=== PATIENT | male | born 1955 | race Caucasian/White ===

== ENCOUNTER 2019-04-07 07:32 | Inpatient (IN) ==
--- NOTE | 2019-03-30 09:16 | PAT Medication Instructions ---
Medication Instructions Date of Service March 30, 2019 Home Medications hydrochlorothiazide 12.5 mg PO QAM ibuprofen 400 mg PO BID ASK your surgeon for instructions ibuprofen 400 mg PO BID DO NOT take the morning of surgery hydrochlorothiazide 12.5 mg PO QAM Other Notes If you have any questions please call us at [phone] or [phone] or [phone] or [phone]
--- NOTE | 2019-03-31 10:31 | Anesthesiology Consultation ---
Date of Service March 31, 2019 Assessment & Plan (1) Encounter for pre-operative examination: - Awaiting surgeon-ordered PCP clearance scheduled 04/02 (MIL Akhtar). - Abnormal preop EKG: consider inferior ischemia. Arranging for preop cardiology evaluation. Chart Review Chart Review: Patient seen in Pre Admission Testing Teaching & Discussion Pre-Anesthesia Teaching/Discussion Notes: Instructed NPO after midnight before surgery,except medications with 15 cc of water. Medication instructions provided according to the PAT guidelines. History Surgery Operation Date: 04/07/19 09:25 Proposed Procedures p Right Anterior Total Hip Arthroplasty - Rei Thompson DO Height/Weight Height: 6 ft 1 in Weight: 92.4 kg Allergies Allergy/AdvReac Type Severity Reaction Status Date / Time No Known Allergies Allergy Verified 03/23/19 15:07 Medications Home Medications Medication Instructions Recorded Confirmed Last Taken hydrochlorothiazide 12.5 mg PO QAM 03/23/19 03/23/19 Unknown ibuprofen 400 mg PO BID 03/23/19 03/23/19 Unknown Past Medical History Medical History Chronic hip pain RIGHT Hypertension Exercise / Class Metabolic Activity II 4-5 Yardwork/Stairs/Walk up hill Past Family History Family History Sister FHx: stomach cancer Past Surgical History Surgical History History of anterior cruciate ligament surgery LEFT History of total left hip replacement Hx of colonoscopy Hx of hernia repair Past Anesthesia History No Hx of Anesthesia Complications History of PONV No Hx of PONV and Hx of Motion Sickness Social History Smoking Status: Never smoker Do You Dip or Chew Tobacco: No Hx Alcohol Use: Yes Alcohol type: wine alcohol intake frequency: a few times a week Hx Substance Use: No Review of Systems Patient denies chest pain, shortness of breath, dyspnea on exertion, cough, wheezing, palpitations. Physical Exam Vital Signs VITALS BP 158/94 P 72 TEMP 98.8 SP02 99%RA RESP 18 PHYSICAL Full neck and c-spine range of motion. Full TMJ range of motion. TMD 3.5 finger breaths Mallampati Score 1 Dentition: missing molars Lungs: clear throughout to auscultation Cardiac: regular rate and rhythm, no murmurs noted Spine: normal Carotid arteries: negative bruit Extremities: no edema Testing Laboratory Results 03/31/19 10:42 03/31/19 10:42 PT 11.2 Seconds (9.0-12.0) 03/31/19 10:42 INR 1.1 (0.9-1.1) 03/31/19 10:42 APTT 26.5 Seconds (21.0-31.0) 03/31/19 10:42 Hemoglobin A1c 5.9 % (4.5-5.6) H 03/31/19 10:42 Urine Color Yellow 03/31/19 10:42 Urine Appearance Clear (Clear) 03/31/19 10:42 Urine pH 5.5 (4.5-7.5) 03/31/19 10:42 Ur Specific [place] 1.017 (1.000-1.030) 03/31/19 10:42 Urine Protein Negative (Negative) 03/31/19 10:42 Urine Glucose (UA) Negative (Negative) 03/31/19 10:42 Urine Ketones Negative (Negative) 03/31/19 10:42 Urine Nitrite Negative (Negative) 03/31/19 10:42 Ur Leukocyte Esterase Negative (Negative) 03/31/19 10:42 Blood Type A Positive 03/31/19 10:42 Antibody Screen NEGATIVE 03/31/19 10:42 Electrocardiogram Date: 03/31/19 NSR at 76bpm. Rightward axis. TWA, consider inferior ischemia. NS STA. Chest X-Ray Date: 03/31/19 Findings: + NAD
[2019-03-31 11:15] LABS: Basophils # (auto) 0.02 K/uL (0-0.2); Basophils % (auto) 0.4 %; Eosinophils # (auto) 0.06 K/uL (0-0.5); Eosinophils % (auto) 1.2 %; Hematocrit (blood only) 42.5 % (42-52); Hemoglobin 14.5 g/dL (14.0-18.0); Immature Granulocytes # (auto) 0.01 K/uL (0.00-0.02); Immature Granulocytes % (auto) 0.2 %; Lymphocytes # (auto) 1.35 K/uL (1.2-3.4); Lymphocytes % (auto) 26.4 %; Mean Corpuscular Hemoglobin 32.4 pg (25-34); Mean Corpuscular Hgb Conc 34.1 g/dL (32-36); Mean Corpuscular Volume 95.1 fL (80-100); Mean Platelet Volume 9.5 fL (7.4-10.4); Monocytes # (auto) 0.49 K/uL (0.11-0.59); Monocytes % (auto) 9.6 %; Neutrophils # (auto) 3.19 K/uL (1.4-6.5); Neutrophils % (auto) 62.2 %; Platelet Count 290 K/uL (130-400); RDW Coefficient of Variation 12.9 % (11.5-14.5); RDW Standard Deviation 44.6 fL (36.4-46.3); Red Blood Count 4.47 M/uL (4.7-6.1); White Blood Count 5.12 K/uL (4.8-10.8)
[2019-03-31 11:18] LABS: Appearance Urine Clear (Clear); Bilirubin Urine Negative (Negative); Blood Urine Negative (Negative); Color Urine Yellow; Glucose Urine UA Negative (Negative); Ketones Urine Negative (Negative); Leukocyte Esterase Urine Negative (Negative); Nitrite Urine Negative (Negative); Protein Urine Negative (Negative); Specific Gravity Urine 1.017 (1.000-1.030); Urobilinogen Urine Negative (Negative); pH Urine 5.5 (4.5-7.5)
--- NOTE | 2019-03-31 11:20 | XRay Report ---
XR chest Pre-admission PA/Lat CLINICAL HISTORY: pat preoperative evaluation COMPARISON STUDY: No previous studies for comparison. FINDINGS: The bones soft tissues and hemidiaphragms are normal. The cardiomediastinal silhouette is n ormal. The lungs are clear. The pulmonary vasculature is normal. IMPRESSION: Negative chest. ACT 112: Negative or not required by law. The above report was generated using voice recognition software. It may contain grammatical, syntax or spelling errors. Electronically signed by: Richi Stewart M.D. 03/31/2019 11:19 AM
[2019-03-31 11:28] LABS: INR 1.1 (0.9-1.1); Partial Thromboplastin Time 26.5 Seconds (21.0-31.0); Prothrombin Time 11.2 Seconds (9.0-12.0)
[2019-03-31 11:38] LABS: Estimated Average Glucose 123 mg/dl; Hemoglobin A1C 5.9 % (4.5-5.6)
[2019-03-31 12:26] LABS: Albumin Level 3.7 gm/dl (3.4-5.0); BUN Creatinine Ratio 12.4 (10-20); Calcium 9.3 mg/dl (8.5-10.1); Creatinine Clr Calc Pharmacy 84.3 ml/min; Est GFR (African American) 91.8; Est GFR (Non-African American) 79.2; Potassium 3.6 mmol/L (3.5-5.1)
--- NOTE | 2019-03-31 21:54 | Electrocardiogram Report ---
Test Reason : Blood Pressure : / mmHG Vent. Rate : 076 BPM Atrial Rate : 076 BPM P-R Int : 166 ms QRS Dur : 102 ms QT Int : 398 ms P-R-T Axes : 049 100 -26 degrees QTc Int : 447 ms Normal sinus rhythm Rightward axis T wave abnormality, consider inferior ischemia Nonspecific ST abnormality Abnormal ECG When compared with ECG of 13-MAY-2015 13:24, T wave inversion now evident in Inferior leads QT has lengthened Confirmed by Spenser Warren ([id number]) on 03/31/2019 9:54:22 PM Referred By: Rei Thompson Confirmed By:Spneser Warren
--- NOTE | 2019-04-06 22:38 | History & Physical Report ---
Date of Service April 06, 2019 Assessment & Plan (1) Degenerative joint disease of right hip: I have indicated the patient for right anterior total hip replacement. The risks, benefits and complications of surgery were explained to the patient which include but not limited to infection, acute blood loss, DVT/PE, injury to nerves, vessels, bone, soft tissue, arthrofibrosis, chronic pain, failure of the prosthesis, hip dislocation, leg length discrepancy, need for additional surgery, cardiac and pulmonary events and . The patient wished to proceed with surgery and informed consent was obtained at this time. We will plan for ASA BID post-operatively for DVT prophylaxis. Upon discharge the patient will be discharged home with home health services. Appropriate clearances by PCP were obtained. History of Present Illness Chief Complaint: Right hip pain/djd Primary Care Provider: Bee Newsome PA-C The patient is a 63 year old male who presents with complaints of severe right hip pain and DJD. The patient has failed outpatient conservative treatments to this point which included NSAIDS, home exercise/walking program, patient declined IA corticosteroid injection. The patient's pain and limited function have progressed to the point where they severely hinder their activities of daily living and they no longer tolerate exercise programs. They are requesting to proceed with total hip replacement surgery. Allergies Allergy/AdvReac Type Severity Reaction Status Date / Time No Known Allergies Allergy Verified 04/07/19 08:02 Home Medications Home Medications Medication Instructions Recorded Confirmed Type ibuprofen 400 mg PO BID 03/23/19 04/07/19 History atorvastatin 20 mg tablet 20 mg PO DAILY #90 tab 04/03/19 04/07/19 Rx lisinopril-hydrochlorothiazide 1 tab PO DAILY 04/03/19 04/07/19 History multivit with [id number] 1 cap PO DAILY 04/07/19 04/07/19 History [Men's Daily] Past Med/Surg History Medical History Aortic stenosis Moderate on echo 03/2019 Bicuspid aortic valve Chronic hip pain RIGHT Hypertension LVH (left ventricular hypertrophy) Surgical History History of anterior cruciate ligament surgery LEFT History of total left hip replacement Hx of colonoscopy Hx of hernia repair Family History Sister FHx: stomach cancer Social History Preferred Language: Greek Communication Ability: Effective Beliefs That Will Affect Care: None Current Living Situation: Spouse Feels Safe at Home: Yes Safety Concerns: Feels Safe At This Time Smoking Status: Never smoker Do You Dip or Chew Tobacco: No ; Second Hand Exposure: No ; Hx Alcohol Use: Yes Alcohol type: wine Hx Substance Use: No Review of Systems Review of Systems: All systems reviewed & are unremarkable except as noted in HPI & below Constitutional: as per Subjective / HPI Physical Exam 2 Physical Exam: RLE NVSI +EHL/FHL/TA/GS SILT grossly, +2 DP pulse, compartments soft NT, painful ROM of the hip, antalgic gait. Constitutional: WD/WN, vitals as above Eyes: PERRL, conjunctivae normal, anicteric sclerae ENMT: external ear and nose normal, oropharynx normal Neck: trachea midline, no thyromegaly Respiratory: normal respiratory effort, lungs clear to auscultation Cardiovascular: RRR, no murmur, no edema Gastrointestinal (Abdomen): normal bowel sounds, soft, nontender, no hepatosplenomegaly Musculoskeletal: no cyanosis or clubbing, extremities motor strength 5/5 Skin: no rashes, warm and dry Neurologic: patellar DTR's 2+ bilat, sensation intact Psychiatric: A+Ox3, euthymic affect Lymphatic: no cervical or axillary lymphadenopathy Results & Data Diagnostic Findings Multiple views of the hip demonstrates severe DJD with complete loss of the joint space. +osteophytes, +sclerosis, +subchondral cysts.
[~2019-04-07 07:32] MED LIST: ACETAMINOPHEN 500 MG TAB PO SCH; BUPIVACAINE 0.5 % 5 MG/1 ML PF 10ML VIAL ONE; CEFAZOLIN 2000MG 2,000 MG/15 ML SYR IV SCH; CeleBREX 200 MG CAP PO SCH; FAMOTIDINE 20 MG TAB PO SCH; GABAPENTIN 600 MG DOSE PO SCH; LR 500ML BOLUS, THEN 15ML/HR IV SCH; ROPIVACAINE 0.5% HCL/PF 150 MG, BUPIVACAINE 0.5% MPF 30 ML, EPINEPHrine 30MG/30ML (OR U... INSTIL SCH; TRANEXAMIC ACID 1,000 MG **IV Intra-op IV SCH; TRANEXAMIC ACID 1,000 MG **IV Pre-op IV SCH; dexAMETHasone 4 MG TAB PO SCH
[2019-04-07] MEDS ORDERED: LIDOCAINE HCL 2% 2 ML VIAL/AMP(20MG/ML) INFIL ONE (08:09)
[2019-04-07] MEDS ORDERED: ONDANSETRON INJ 2 MG/ML 2 ML VIAL ONE (08:09)
[2019-04-07] MEDS ORDERED: ROCURONIUM BROMIDE 10 MG/ML 5 ML VIAL ONE (08:09)
[2019-04-07] MEDS ORDERED: fentaNYL citrate 100 MCG/2 ML VIAL ONE (08:09)
[2019-04-07] MEDS ORDERED: PROPOFOL IV EMULSION 10 MG/ML 20 ML VIAL IV ONE (08:09)
[2019-04-07] MEDS ORDERED: MIDAZOLAM HCL 1 MG/ML 2ML VIAL ONE (08:10)
[2019-04-07] MEDS ORDERED: ONDANSETRON INJ 2 MG/ML 2 ML VIAL IV PRN ×2 (09:16→13:39)
[2019-04-07] MEDS ORDERED: ePHEDrine sulfate 50 MG/ML AMP IV PRN (09:16)
[2019-04-07] MEDS ORDERED: ATROPINE SULFATE 0.1 MG/ML 10ML SYR IV PRN (09:16)
[2019-04-07] MEDS ORDERED: BACITRACIN INJ 50,000 UNIT VIAL ONE (09:18)
[2019-04-07] MEDS ORDERED: ORTHO JOINT ANESTHETIC ONE (09:18)
--- NOTE | 2019-04-07 09:23 | History & Physical Bridge Note ---
Date of Service April 07, 2019 History & Physical Bridge Note I have examined the patient, reviewed the History & Physical and in the interval since the performance of the History & Physical I have noted the following changes of clinical significance: no changes noted
[2019-04-07] MEDS ORDERED: HYDROmorphone INJ 2 MG/ML SYR/VIAL ONE (11:23)
--- NOTE | 2019-04-07 11:36 | Post Operative Brief Note ---
Immediate Post Op Note v1 Date of Surgery April 07, 2019 Pre & Post Diagnosis Operation Date: 04/07/19 09:35 Pre-Op Diagnosis: Degenerative joint disease of right hip Post-Op Diagnosis: Degenerative joint disease of right hip I identified the patient and participated in the time-out.: Yes Procedure Operation Date: 04/07/19 09:35 Actual Procedures p Right Anterior Total Hip Arthroplasty(Right) - Rei Thompson DO Surgeon Rei Thompson DO Pleasure Craft Sailor Brian Robert Estimated Blood Loss 135 Findings Consistent with Post-Op Diagnosis Fluids 800 cc LR Specimens femoral head Anesthesia Type General Complications none Disposition Disposition: Recovery Room Overlapping Procedure I was present for: the critical portions of procedure. I was immediately available: during the entire case. Back up surgeon: was not required during procedure.
--- NOTE | 2019-04-07 11:40 | Operative Report ---
Post Operative Report Pre & Post Diagnosis Operation Date: 04/07/19 09:35 Pre-Op Diagnosis: Degenerative joint disease of right hip Post-Op Diagnosis: Degenerative joint disease of right hip I identified the patient and participated in the time-out.: Yes Procedure Operation Date: 04/07/19 09:35 Actual Procedures p Right Anterior Total Hip Arthroplasty(Right) - Rei Thompson DO Surgeon Rei Thompson DO Pet Sitting Brian Robert Estimated Blood Loss 135 Findings Consistent with Post-Op Diagnosis Fluids 800 cc LR Specimens Femoral head Drains None Anesthesia Type General Complications none Disposition Disposition: Recovery Room Indications The patient is a 63-year-old male who presents with severe progressive right hip DJD who has failed outpatient conservative treatments. I indicated the patient for a anterior total hip replacement and the risks and benefits were explained in detail which include but not limited to infection, bleeding, blood clot, damage to surrounding bone, nerves, vessels, soft tissue, hip dislocation, failure of the prosthesis, leg length discrepancy, need for additional surgery and . The patient agreed to proceed with replacement of the hip and informed consent was obtained. Appropriate clearances were obtained. Description of Procedure COMPONENTS USED: [employer] hip system: Acetabulum size 58, femur size 8 high offset, femoral head 36+0, liner 5836, acetabular screw 25 mm times. DESCRIPTION OF PROCEDURE: Following satisfactory general anesthesia, the patient was placed supine on the OR table. The left leg was placed in the well leg [place] and the right leg in the traction device. The right leg was prepared with ChloraPrep and draped sterilely. A surgical timeout was performed, patient identified and site heather verified. Appropriate antibiotics were given. A standard anterior approach in the interval between the sartorius and tensor muscles was performed. Dissection was carried down through subcutaneous tissues. Electrocautery was utilized for hemostasis. Circumflex femoral vessels were identified, tied and ligated. The anterior capsular fat pad was removed and the capsulotomy was performed revealing the arthritic femoral neck and head. A femoral neck cut was made with reciprocating saw and the bone fragments removed. The acetabular self-retraining retractor was placed. Acetabular reaming was completed under fluoroscopic guidance, a 58 shell was impacted into an anatomic position and secured with a dome screw. Local anesthetic was placed and following irrigation, the polyethylene liner was placed. The femur was placed into position of external rotation, extension and adduction. Femoral canal was prepared up to the size 8 high offset. Trial reduction with a plus neck length head showed good soft tissue tension, leg lengths restored, and good fit and fill of the proximal canal using fluoroscopic landmarks. The hip was dislocated. The trial component was removed. The final implant was placed. The hip was irrigated with sterile saline solution and reduced. A Betadine soak was performed. After 3 minutes, the hip was once more irrigated with copious sterile saline solution with bacitracin. Deya-incisional soft tissue was injected utilizing [place] [employer] which includes a combination of Ropivicaine 0.5% 150mg, Bupivicaine 0.5%/Epinephrine 1:200,000 30ml, Toradol 30mg, Dexamethasone 4mg, Ketamine 10mg, Clonidine 100mcg and NSS 30ml solution. The capsule was then closed with 1-0 Vicryl interrupted figure of eight sutures. The fascia was closed with a running suture of #1 Vicryl, the subcutaneous tissues with 2-0 Vicryl and the skin with a running subcuticular stitch of 3-0 V-Loc. Dermabond prineo and a dry dressing were applied. The patient tolerated the procedure well and was transported to PACU in stable condition. Due to the complex nature of the procedure, the entire surgery was performed with the operational assistance of Brian robert PA-C. The culinary assistant, under direct supervision, was involved in the actual performance of all aspects of the surgical procedure including patient positioning, hemostasis, tissue retraction, instrument management and wound closure. I attest to the content of the Intraoperative Record and any orders documented therein. Any exceptions are noted below.
[2019-04-07] MEDS ORDERED: NEOSTIGMINE METHYLSULFATE 5 MG/5 ML SYR ONE (11:48)
[2019-04-07] MEDS ORDERED: PHENYLEPHRINE HCL 10 MG/ML VIAL ONE (11:48)
[2019-04-07] MEDS ORDERED: GLYCOPYRROLATE 0.2 MG/ML VIAL ONE (11:48)
[2019-04-07] MEDS: fentaNYL citrate 100 MCG/2 ML VIAL IV PRN ×2 (12:07→12:17)
--- NOTE | 2019-04-07 12:19 | Fluoroscopy Report ---
FL hip RT 1V CLINICAL HISTORY: RT ANTERIOR HIP COMPARISON STUDY: None. FLUOROSCOPY TIME: 58 seconds. FINDINGS: 2 fluoroscopic spot images of the right hip demonstrate a right total arthroplasty. There i s evidence for prior left total hip arthroplasty. The hardware appears intact. No fracture or disloca tion. IMPRESSION: Fluoroscopy provided for right total arthroplasty. No evidence for hardware complications . ACT 112: Negative or not required by law. Electronically signed by: Hector Fulton M.D. 04/07/2019 12:18 PM
[2019-04-07] MEDS: HYDROmorphone INJ 2 MG/ML SYR/VIAL IV PRN ×3 (12:29→12:51)
--- NOTE | 2019-04-07 12:57 | XRay Report ---
XR hip 1V RT w pelvis CLINICAL HISTORY: IN PACU - A/P PELVIS and LATERAL HIP COMPARISON: 05/23/2015 DISCUSSION: Pre-existing total left arthroplasty in good position. Interval placement of a total right hip arthroplasty. Position is good. Could contact between prosthe tic and underlying bone. Expected postoperative soft tissue change IMPRESSION: Anatomic alignment post total right hip arthroplasty. ACT 112: Negative or not required by law. The above report was generated using voice recognition software. It may contain grammatical, syntax or spelling errors. Electronically signed by: Richi Stewart M.D. 04/07/2019 12:56 PM
--- NOTE | 2019-04-07 13:36 | Anesthesiology Progress Note ---
Date of Service April 07, 2019 Anesthesia Post Procedure Vital Signs Vital Signs: Temp Pulse Resp BP BP Pulse Ox 04/07/19 13:15 95 H 21 122/69 99 04/07/19 13:05 37.2 C 85 12 123/83 98 04/07/19 12:55 79 14 139/85 99 04/07/19 12:40 82 12 137/77 99 04/07/19 12:30 78 16 148/92 H 99 04/07/19 12:20 75 12 104/76 100 04/07/19 12:10 63 13 134/86 100 04/07/19 12:02 36.4 C L 69 21 127/76 100 04/07/19 08:05 37.1 C 79 20 139/94 97 Pain Intensity Right Hip: Pain Intensity: 4 Transfer of Care Handoff Completed per policy Notes Mental Status: alert / awake / arousable and participated in evaluation Patient Amnestic to Procedure: Yes Nausea / Vomiting: adequately controlled Pain: adequately controlled Airway Patency, RR, SpO2: stable & adequate BP & HR: stable & adequate Hydration State: stable & adequate Anesthetic Complications: no major complications apparent and Pt Satisfied with anesthetic care
[2019-04-07] MEDS ORDERED: MAGNESIUM HYDROXIDE SUSP 30 ML UDC PO PRN (13:39)
[2019-04-07] MEDS ORDERED: NALOXONE HCL 0.4 MG/1 ML VIAL/CARP IV PRN (13:39)
[2019-04-07] MEDS ORDERED: METOCLOPRAMIDE HCL INJ 5 MG/ML 2 ML VIAL IV PRN (13:39)
[2019-04-07] MEDS ORDERED: bisacodyL 10 MG SUPP PR PRN (13:39)
[2019-04-07] MEDS ORDERED: INFLUENZA VIRUS QUAD VACCINE 0.5 ML SYR IM ONE (13:59)
[2019-04-07] MEDS ORDERED: INFLUENZA ADMINISTRATION CHARGE ONE (13:59)
[2019-04-07] MEDS ORDERED: ACETAMINOPHEN 500 MG TAB PO ONE (14:15)
[2019-04-07] MEDS: SODIUM CHLORIDE 0.9% 1000ML 1,000 ML IV SCH (14:42)
--- NOTE | 2019-04-07 14:51 | Orthopedic Progress Note ---
Date of Service April 07, 2019 Assessment & Plan (1) Degenerative joint disease of right hip: s/p Right anterior ANGELIQUE -ancef x 24 -DVT ppx: SCDs, TEDs, ASA BID -WBAT RLE -PT/OT -PO XR demonstrates well aligned well fixed prothesis without fracture/dislocation -am labs -DC planning Admission and Anticipated Discharge Date Admission Date: April 07, 2019 Subjective Post Operative Progress Note Patient seen in PACU, comfortable, denies complaints, pain well controlled, no acute issues. Review of Systems Review of Systems: All systems reviewed & are unremarkable except as noted in HPI & below Constitutional: as per Subjective / HPI Physical Exam Physical Exam: RLE NVSI +EHL/FHL/TA/GS SILT grossly, +2 DP pulse, compartments soft NT, dressing cdi. Constitutional: WD/WN, vitals as above Results & Data ([facility]) Vital Signs (Past 12 Hours) Vital Signs Temp Pulse Pulse Resp BP BP Pulse Ox 04/07/19 14:31 88 16 136/92 99 04/07/19 14:00 92 H 16 147/100 H 99 04/07/19 13:30 37.1 C 81 16 118/76 96 04/07/19 13:15 95 H 21 122/69 99 04/07/19 13:05 37.2 C 85 12 123/83 98 04/07/19 12:55 79 14 139/85 99 04/07/19 12:40 82 12 137/77 99 04/07/19 12:30 78 16 148/92 H 99 04/07/19 12:20 75 12 104/76 100 04/07/19 12:10 63 13 134/86 100 04/07/19 12:02 36.4 C L 69 21 127/76 100 04/07/19 08:05 37.1 C 79 20 139/94 97
[2019-04-07] MEDS: CEFAZOLIN 2000MG 2,000 MG/15 ML SYR IV SCH ×2 (19:07→23:54)
[2019-04-07] MEDS: KETOROLAC TROMETHAMINE 15 MG/ML VIAL IV SCH ×2 (19:07→23:55)
[2019-04-07] MEDS ORDERED: SENNA 8.6 MG TAB PO SCH (21:00)
[2019-04-07] MEDS: DOCUSATE SODIUM 100 MG CAP PO SCH (21:24)
[2019-04-07] MEDS: ACETAMINOPHEN 500 MG TAB PO SCH (21:25)
[2019-04-07] MEDS: OXYCODONE HCL IR 5 MG TAB (IMMEDIATE RELEASE) PO PRN (23:33)
[2019-04-08] MEDS: SODIUM CHLORIDE 0.9% 1000ML 1,000 ML IV SCH (00:08)
[2019-04-08] MEDS: HYDROmorphone INJ 0.5 MG/0.5 ML SYR IV PRN ×2 (01:35→07:41)
[2019-04-08] MEDS: OXYCODONE HCL IR 5 MG TAB (IMMEDIATE RELEASE) PO PRN ×2 (05:27→10:07)
[2019-04-08] MEDS: ACETAMINOPHEN 500 MG TAB PO SCH (05:27)
[2019-04-08] MEDS: KETOROLAC TROMETHAMINE 15 MG/ML VIAL IV SCH ×2 (05:28→11:44)
[2019-04-08 06:47] LABS: Basophils # (auto) 0.01 K/uL (0-0.2); Basophils % (auto) 0.1 %; Eosinophils # (auto) 0.01 K/uL (0-0.5); Eosinophils % (auto) 0.1 %; Hematocrit (blood only) 35.7 % (42-52); Hemoglobin 12.3 g/dL (14.0-18.0); Immature Granulocytes # (auto) 0.02 K/uL (0.00-0.02); Immature Granulocytes % (auto) 0.2 %; Lymphocytes # (auto) 1.15 K/uL (1.2-3.4); Lymphocytes % (auto) 10.5 %; Mean Corpuscular Hemoglobin 32.5 pg (25-34); Mean Corpuscular Hgb Conc 34.5 g/dL (32-36); Mean Corpuscular Volume 94.4 fL (80-100); Mean Platelet Volume 9.2 fL (7.4-10.4); Monocytes # (auto) 1.14 K/uL (0.11-0.59); Monocytes % (auto) 10.4 %; Neutrophils # (auto) 8.61 K/uL (1.4-6.5); Neutrophils % (auto) 78.7 %; Platelet Count 236 K/uL (130-400); RDW Coefficient of Variation 12.7 % (11.5-14.5); RDW Standard Deviation 43.6 fL (36.4-46.3); Red Blood Count 3.78 M/uL (4.7-6.1); White Blood Count 10.94 K/uL (4.8-10.8)
[2019-04-08 07:21] LABS: BUN Creatinine Ratio 13.4 (10-20); Calcium 8.9 mg/dl (8.5-10.1); Creatinine Clr Calc Pharmacy 87.9 ml/min; Est GFR (African American) 96.4; Est GFR (Non-African American) 83.2; Potassium 4.2 mmol/L (3.5-5.1)
--- NOTE | 2019-04-08 08:05 | Anesthesiology Progress Note ---
Date of Service April 08, 2019 Anesthesia Post Procedure Vital Signs Vital Signs: Temp Pulse Pulse Resp BP BP Pulse Ox 04/08/19 03:10 36.5 C 53 L 16 129/79 97 04/07/19 23:17 37.0 C 64 16 116/79 96 04/07/19 19:32 36.9 C 86 16 135/89 98 04/07/19 16:31 36.9 C 78 17 128/84 95 04/07/19 15:59 16 100 04/07/19 15:25 37.0 C 82 16 118/77 100 04/07/19 14:31 88 16 136/92 99 04/07/19 14:00 92 H 16 147/100 H 99 04/07/19 13:30 37.1 C 81 16 118/76 96 04/07/19 13:15 95 H 21 122/69 99 04/07/19 13:05 37.2 C 85 12 123/83 98 04/07/19 12:55 79 14 139/85 99 04/07/19 12:40 82 12 137/77 99 04/07/19 12:30 78 16 148/92 H 99 04/07/19 12:20 75 12 104/76 100 04/07/19 12:10 63 13 134/86 100 04/07/19 12:02 36.4 C L 69 21 127/76 100 04/07/19 08:05 37.1 C 79 20 139/94 97 Pain Intensity Right Hip: Pain Intensity: 7 Notes Mental Status: alert / awake / arousable and participated in evaluation Patient Amnestic to Procedure: Yes Nausea / Vomiting: adequately controlled Pain: adequately controlled Airway Patency, RR, SpO2: stable & adequate BP & HR: stable & adequate Hydration State: stable & adequate Anesthetic Complications: no major complications apparent and Pt Satisfied with anesthetic care
--- NOTE | 2019-04-08 08:17 | Orthopedic Progress Note ---
Date of Service April 08, 2019 Assessment & Plan (1) Degenerative joint disease of right hip: s/p Right anterior ANGELIQUE POD#1 -ancef x 24 -DVT ppx: SCDs, TEDs, ASA BID -WBAT RLE -PT/OT -PO XR demonstrates well aligned well fixed prothesis without fracture/dislocation -am labs - hgb 12.3, as above -continue with current pain control protocol -DC planning - home with Admission and Anticipated Discharge Date Admission Date: April 07, 2019 Subjective Post Operative Progress Note Patient seen sitting up in bed, comfortable, denies complaints, c/o pain over night however, pain well controlled now, no acute issues. Review of Systems Review of Systems: All systems reviewed & are unremarkable except as noted in HPI & below Constitutional: as per Subjective / HPI Physical Exam Physical Exam: RLE NVSI +EHL/FHL/TA/GS SILT grossly, +2 DP pulse, compartments soft NT, dressing cdi. Constitutional: WD/WN, vitals as above Results & Data ([facility]) Vital Signs (Past 12 Hours) Vital Signs Temp Pulse Resp BP Pulse Ox 04/08/19 08:03 36.6 C 60 16 127/82 97 04/08/19 03:10 36.5 C 53 L 16 129/79 97 04/07/19 23:17 37.0 C 64 16 116/79 96 Laboratory Results 04/08/19 04/08/19 Range/Units 06:34 06:34 WBC 10.94 H (4.8-10.8) K/uL RBC 3.78 L (4.7-6.1) M/uL Hgb 12.3 L (14.0-18.0) g/dL Hct 35.7 L (42-52) % MCV 94.4 (80-100) fL MCH 32.5 (25-34) pg MCHC 34.5 (32-36) g/dL RDW Std Deviation 43.6 (36.4-46.3) fL RDW Coeff of Ion 12.7 (11.5-14.5) % Plt Count 236 (130-400) K/uL MPV 9.2 (7.4-10.4) fL Immature Gran % (Auto) 0.2 % Neut % (Auto) 78.7 % Lymph % (Auto) 10.5 % [place] % (Auto) 10.4 % Eos % (Auto) 0.1 % Baso % (Auto) 0.1 % Immature Gran # (Auto) 0.02 (0.00-0.02) K/uL Neut # (Auto) 8.61 H (1.4-6.5) K/uL Lymph # (Auto) 1.15 L (1.2-3.4) K/uL [place] # (Auto) 1.14 H (0.11-0.59) K/uL Eos # (Auto) 0.01 (0-0.5) K/uL Baso # (Auto) 0.01 (0-0.2) K/uL Sodium 135 L (136-145) mmol/L Potassium 4.2 (3.5-5.1) mmol/L Chloride 102 (98-107) mmol/L Carbon Dioxide 29 (21-32) mmol/L Anion Gap 4.0 (3-11) BUN 13 (7-18) mg/dl Creatinine 0.96 (0.6-1.4) mg/dl Est Cr Clr Drug Dosing 87.9 ml/min Est GFR ( Amer) 96.4 Est GFR (Non-Af Amer) 83.2 BUN/Creatinine Ratio 13.4 (10-20) Glucose 115 H (70-99) mg/dl Calcium 8.9 (8.5-10.1) mg/dl
[2019-04-08] MEDS: DOCUSATE SODIUM 100 MG CAP PO SCH (08:45)
[2019-04-08] MEDS ORDERED: ASPIRIN 325 MG ECTAB PO SCH (09:00)
[2019-04-08] MEDS ORDERED: lisinopriL 10 MG TAB PO SCH (09:00)
[2019-04-08] MEDS ORDERED: MULTIVITAMIN TAB PO SCH (09:00)
[2019-04-08] MEDS ORDERED: ATORVASTATIN 20 MG TAB PO SCH (09:00)
[2019-04-08] MEDS ORDERED: hydroCHLOROthiazide 25 MG TAB PO SCH (09:00)
--- NOTE | 2019-04-08 18:38 | Discharge Summary ---
Date of Service April 08, 2019 Admission HPI Per Admitting Provider The patient is a 63 year old male who presents with complaints of severe right hip pain and DJD. The patient has failed outpatient conservative treatments to this point which included NSAIDS, home exercise/walking program, patient declined IA corticosteroid injection. The patient's pain and limited function have progressed to the point where they severely hinder their activities of daily living and they no longer tolerate exercise programs. They are requesting to proceed with total hip replacement surgery. Principal Diagnosis Right anterior total hip replacement -right hip djd Discharge Exam RLE NVSI +EHL/FHL/TA/GS SILT grossly, +2 DP pulse, compartments soft NT, dressing cdi. Constitutional WD/WN, vitals as above Discharge Data Allergies Allergy/AdvReac Type Severity Reaction Status Date / Time No Known Allergies Allergy Verified 04/07/19 08:02 Consultations 04/08/19 08:00 Consult Case Management - Discharge Planning Routine Procedures Performed Operation Date: 04/07/19 09:35 Actual Procedures p Right Anterior Total Hip Arthroplasty(Right) - Rei Thompson DO Ordered Studies 04/07/19 09:35 FL fluoroscopy <1hr Routine FL hip RT 1V Routine Hospital Course (1) Degenerative joint disease of right hip: The patient is a 63 -year-old male who presents with long standing history of severe right hip DJD and failed outpatient conservative treatments. The patient's symptoms have progressed to the point where it has been difficult to perform even normal activities of daily living. I indicated the patient for a right anterior total hip arthroplasty, the risks, benefits and complications of the procedure include but not limited to infection, bleeding, damage to bone, nerves, vessels, surrounding soft tissue, may develop blood clots, loss of function, leg length discrepancy, dislocation, failure of the components, loosening of the components, the need for additional surgery and . The patient wished to proceed with surgery at this time and informed consent was obtained. Hospital Course: On 04/07/19 the patient was taken to the operating room, adequate anesthesia administered and underwent a right anterior total hip arthroplasty. The patient tolerated the procedure well and was taken to the PACU in stable condition. Post-operatively the patient was started on a DVT ppx medication and given appropriate IV antibiotics. Consults were placed to physical therapy, occupational therapy and case management. On POD#1, the patient did well overnight and their pain was well controlled. Labs were drawn and the Hgb was 12.3. The patient progressed well with PT. Dressings were changed at this time and the incision was clean, dry and intact. The patients hospital stay was relatively uneventful and they were deemed stable by the orthopedic team and consultants to be discharged home with OPPT on 04/08/19. Discharge Instructions: Upon discharge the patient may weight bear as tolerates through their operative extremity. They were instructed to keep the incision clean and dry at all times. The patient may shower but should not submerge the incision, avoid bathing, pools and hot tubes. The patient was given a script for pain medication and should take as instructed. The patient was given a script for DVT ppx ASA 325mg BID and should take as directed. The patient was instructed to not drive or travel for long distances until cleared to do so. If the patient develops any symptoms of fevers, chills, nausea, vomiting, increased redness, swelling, pain or drainage from the surgical site, they should notify the office and/or proceed to the nearest emergency room. The patient should follow up in 10-14 days after surgery for their routine post-operative follow-up appointment and should call the office to confirm the date and time. s/p Right anterior ANGELIQUE POD#1 -ancef x 24 -DVT ppx: SCDs, TEDs, ASA BID -WBAT RLE -PT/OT -PO XR demonstrates well aligned well fixed prothesis without fracture/dislocation -am labs - hgb 12.3, as above -continue with current pain control protocol -DC planning - home with OPPT Total Time Total Time Spent Total Time Spent (In Minutes): 30 minutes Discharge Plan Discharge Items Patient Disposition: Home - Self-Care Reason For Visit: Unilateral Primary Osteoarthritis, Right Hip Discharge Diagnosis: Right anterior total hip replacement -Right hip DJD Condition on Discharge: Good Activity: Per Instructions section Lifting: Wait until after follow-up appointment Bathing: Keep incision dry Bathing Comment: No bathing, pools or hot tubs Sexual Activity: Wait until after follow-up appointment Exercise/Sports: Wait until after follow-up appointment Driving/Machine Use: No driving Weightbearing: Full weightbearing Non-emergency contact: Primary Care Provider and Surgeon Call non-emergency contact if: you have any medication questions, your symptoms worsen, your pain is not controlled, your pain is worsening, your pain is unusual for you, your pain is concerning for you, you have a fever, your temperature is above 101, your wound has increased redness, your wound has increased drainage and your wound pain has increased Follow-up/Referrals: Bee Newsome PA-C [Primary Care Provider] - Diet: Regular Addtl Attending Provider Instructions: ACTIVITY RECOMMENDATIONS: SELF CARE INSTRUCTIONS AFTER TOTAL HIP REPLACEMENT : Direct Anterior Approach Until the incision and soft tissues around your hip have healed, there is a possibility that the hip prosthesis could dislocate. A. Hip flexion ( Up & Down out of chair or steps ) may be difficult. This is normal. B. Numbness in front of the thigh is also normal for a few weeks. C. Use hand rails when walking on stairs. D. Wear low heeled shoes with non-slip soles. E. Be sure that your floors are free of things that could trip you - throw rugs, electrical cords, small objects. Avoid wet and waxed floors, especially with crutches and canes. F. Try to walk several times a day with rest periods between. G. Continue with all the exercises taught to you in the hospital. Again, make walking a part of your daily routine. SPECIAL CARE INSTRUCTIONS: VERY IMPORTANT TO READ AND REVIEW A. You may still be at risk for phlebitis and blood clots. 1. Wear surgical stockings (DELANO hose) for 2 weeks after surgery to improve circulation and reduce swelling. 2. Take Aspirin 325mg twice daily for 4 weeks or as directed by your doctor. This is your blood thinner. 3. High risk patients may be prescribed a stronger blood thinner if necessary. 4. If you are on Coumadin normally, your family doctor/aerial gunner should monitor your blood work. Expect a phone call the day of or the day after bloodwork is drawn to adjust your dosage. B. You must take antibiotics before having dental work, bladder, bowel and other surgery. Your doctor will provide you with a permanent card to carry describing precautions. C. Call [facility] if you have a fever, redness or swelling around the incision, cloudy drainage from incision, or sudden increase in pain in your hip, not relieved by your regular pain medication. D. Please call the office at if you have any concerns or questions about your operation or recovery. * YOU MAY SHOWER, NO TUB BATHS UNTIL CLEARED BY YOUR DOCTOR. - Keep an extra close eye on the top portion of your incision. Be sure to keep clean & dry. * WEAR DELANO HOSE 20 HOURS PER DAY FOR 2 WEEKS. * YOU MAY PROGRESS FROM A WALKER, TO A CANE, TO INDEPENDENT AT YOUR OWN PACE. * MOST PATIENTS WILL HAVE HOME NURSING FOR THERAPY. IF YOU DECIDE TO DO OUTPATIENT PHYSICAL THERAPY, PLEASE SCHEDULE THIS 3 TIMES PER WEEK. * DERMABOND Prineo- This is a mesh tape dressing that is covered with glue. It should remain in place until the incision is properly healed, usually 10-14 days. This dressing is designed to naturally slough off. You may trim the excess mesh tape as it peels off. Incision may be briefly wet in a shower. Dry immediately by blotting with a clean, dry towel. Do not bath or swim until instructed by your doctor. Do not scratch, rub, or pick at the dressing. Do not apply any topical ointments or lotions until dressing is completely removed and/or instructed by your doctor. There may be a small piece of suture material at one end of your incision. Do not pull or trim this. If it is bothersome or catching on clothing, you may cover it with a band-aid. FOLLOW UP VISIT: If appointment is not already scheduled: Please call [facility] to make a follow-up appointment for 2 weeks after your surgery at . Pending Studies at Discharge: No Stand-Alone Forms: My [facility] [employer], Opioid Pain Management, Smoking Cessation Medications and DC Order Prescriptions: New celecoxib [Celebrex] 200 mg Capsule 200 mg PO BID PRN (Reason: pain/inflammation) Qty: 28 RF: 0 acetaminophen 500 mg Tablet 1,000 mg PO Q8 PRN (Reason: pain) Qty: 90 RF: 0 aspirin 325 mg Tablet,Delayed Release (Dr/Ec) 325 mg PO BID Qty: 56 RF: 0 oxycodone 5 mg Tablet 5 mg PO Q6H MDD 6 tabs PRN (Reason: pain) Qty: 30 RF: 0 sennosides [Senokot] 8.6 mg Tablet 17.2 mg PO HS PRN (Reason: constipation) Qty: 28 RF: 0 Continued lisinopril-hydrochlorothiazide 1 tab PO DAILY RF: 0 atorvastatin 20 mg tablet 20 mg PO DAILY Qty: 90 RF: 3 Men's Daily 0.4-600 mg-mcg Capsule 1 cap PO DAILY RF: 0 Discontinued ibuprofen 200 mg Tablet 400 mg PO BID RF: 0 Discharge Orders: Discharge Order (Routine); Ordered 04/08/19 Ordered By: Turner Helton/Other Patient Handouts: Surgery Prevent DVT After Admission Data Admit Date/Time: 04/07/19 12:14 Attending Provider: Rei Thompson Admit Provider: Rei Thompson Primary Care Provider: Bee Newsmoe Other Interventions: Discharge Summary Assessment (RN) Last Done: 04/08/19 12:29 DC Date/Time DO NOT enter until pt leaves facility: 04/08/19 13:00
[2019-04-08] MEDS ORDERED: CeleBREX 200 MG CAP PO SCH (21:00)
== END 2019-04-08 13:00 | disposition home or self-care (01) | DRG 470 ==
LOC: ASU 07:32 → 3E 12:14

== ENCOUNTER 2021-06-26 12:39 | Observation (INO) ==
--- NOTE | 2021-06-26 07:41 | History & Physical Bridge Note ---
Date of Service June 26, 2021 History & Physical Bridge Note I have examined the patient, reviewed the History & Physical and in the interval since the performance of the History & Physical I have noted the following changes of clinical significance: no changes noted
--- NOTE | 2021-06-26 07:43 | Pre Anesthesia Assessment ---
Date of Service June 26, 2021 Pre Sedation Assessment Cardiovascular RRR, no murmur, no edema Respiratory normal respiratory effort, lungs clear to auscultation Pre-Sedation Airway Assessment Smoking Status: Never smoker Hx Sleep Apnea: No Hx Difficult Intubation: No Short, Thick Neck: No Thyromental Distance: > or= 3.5 Finger Breadths Oral Cavity: + WNL ASA: ASA3 Procedure Planning Contraindications for Sedation: none Current Medications Reviewed: Yes Notes The planned sedation has been discussed with the patient. Informed Consent was obtained. I have identified the patient, determined the appropriateness of sedation and have assessed the patient immediately prior to the procedure. All medicine(s) and interventions are by my order.
[~2021-06-26 12:39] MED LIST changes: +ACETAMINOPHEN 325 MG TAB PO PRN; -ACETAMINOPHEN 500 MG TAB PO SCH; +ASPIRIN 81 MG CHEW ONE; -BUPIVACAINE 0.5 % 5 MG/1 ML PF 10ML VIAL ONE; -CEFAZOLIN 2000MG 2,000 MG/15 ML SYR IV SCH; +CLOPIDOGREL BISULFATE 300 MG TAB ONE; -CeleBREX 200 MG CAP PO SCH; -FAMOTIDINE 20 MG TAB PO SCH; -GABAPENTIN 600 MG DOSE PO SCH; +HEPARIN (PORCINE) 1000 UNIT/ML 10 ML (CATH LAB USE ONLY) ONE; -LR 500ML BOLUS, THEN 15ML/HR IV SCH; +MIDAZOLAM HCL 1 MG/ML 2ML VIAL ONE; +NITROGLYCERIN/D5W 100MCG/ML 20ML SYR ONE; +ONDANSETRON INJ 2 MG/ML 2 ML VIAL IV PRN; -ROPIVACAINE 0.5% HCL/PF 150 MG, BUPIVACAINE 0.5% MPF 30 ML, EPINEPHrine 30MG/30ML (OR U... INSTIL SCH; -TRANEXAMIC ACID 1,000 MG **IV Intra-op IV SCH; -TRANEXAMIC ACID 1,000 MG **IV Pre-op IV SCH; -dexAMETHasone 4 MG TAB PO SCH; +fentaNYL citrate 100 MCG/2 ML VIAL ONE; +niCARdipine HCL INJ 2.5 MG/ML 10 ML AMP ONE
--- NOTE | 2021-06-26 12:43 | Post Anesthesia Assessment ---
Date of Service June 26, 2021 Post Sedation Assessment Vital Signs Temp Pulse Resp BP Pulse Ox 06/26/21 12:30 55 L 20 143/86 H 96 06/26/21 12:15 56 L 20 151/87 H 96 06/26/21 12:06 60 20 137/91 97 06/26/21 09:23 98.8 F 55 L 172/87 H 99 Recovery Score Activity: Moves 4 extremities Respiration: Deep Breath/Cough Circulation: +/-20% PreAnes Value Consciousness: Fully Awake Oxygen Saturation: O2 needed for >90% Post Anesthesia Score: 10 Discharge Sedation Level of Care: Fast Track Phase II Post Sedation Plan On clinical assessment, the patient appears to have tolerated the sedation without complications. Patient is recovering as anticipated. Patient will continue to be monitored by nursing and may be discharged when sedation discharge criteria are met per below protocol. Upon Completions of procedure up to 15 minutes continue every 5 minute vital signs and the P.A.R. score; then discharge to a Phase I or Fast Track to Phase II per the following guidelines: * Discharge Patient to appropriate Phase II area if PAR is 8 or greater or return to pre- procedure baseline. The post - procedure orders will be as directed. * If PAR score is less than 8 or not return to pre-procedure baseline then patient will follow Phase I monitoring till PAR is reached for Phase II. The Phase I may be done in procedure room or may call to secure a Phase I area. * If naloxone or flumazenil are used for reversal, hold in Phase I for continued monitoring from when last reversal dose was given for a minimum of 60 minutes or longer pending the nurse and/or physician discretion of patient condition before discharge to Phase II. Please call the Sedation Physician to re-evaluate and complete post-note for discharge to Phase II area. Do NOT discharge from procedure sedation or Phase 1 until post- sedation evaluation note is complete by procedure /sedation MD Sedation Discharge Instructions to be given to the patient at discharge to home.
[2021-06-26] MEDS ORDERED: SODIUM CHLORIDE 0.9% 1000ML 1,000 ML IV SCH (12:45)
--- NOTE | 2021-06-26 23:41 | Cardiac Catheterization ---
[facility] Data: Crop Production Advisor Cardiac Status Clinical evaluation leading to the procedure CAD Presenation: Unstable angina Anginal Classification: CCS III Diagnostic Physicians Name: Waqas Villafana MD Closure Device Recommendations: PCI without planned CABG and Valve Replacement Cardiac Cath Procedure Full Procedure Date June 26, 2021 Pre-Procedure Diagnosis Pre-Procedure Diagnosis: Angina and Valvular Disease AUC Score AUC Score: 7 Post-Procedure Diagnosis Post-Procedure Diagnosis: Severe CAD, Successful PCI and Normal Intracardiac Pressures Procedure(s) Performed Procedure(s) Performed: Coronary Angiography, Left Heart Cath and Drug Eluting Stent Distributor Operator Waqas Villafana MD Hr Intern(s) Mason Estimated Blood Loss Estimated Blood Loss: 12 Medication(s) Medication(s): Clopidogrel, Fentanyl, Heparin, Lidocaine 1%, Nicardipine, Nitroglycerin and Versed Summary of Findings Indication: Accelerating angina, severe aortic stenosis Access: 6 Fr right radial artery Catheters: Hurt, diagnostic JR4, AL-1, EBU 3.5 guide Findings: LM -normal caliber, no significant disease LAD -medium caliber, mild diffuse mid segment disease prior to 80% mid stenosis, remainder of vessel without significant disease and extends around apex. Medium D1 without significant disease. Circumflex -large caliber, 95% focal mid segment stenosis. Large OM 2 without significant disease RCA -medium caliber, dominant, distal luminal irregularities. PDA without significant disease. LVEDP -15 Aortic valve pullback gradient 41 mmHg Discussion had with patient's primary partner marketing intern and patient regarding options for management of his multivessel disease and aortic stenosis. Patient preferred TAVR and coronary disease appeared focal and amenable to PCI. Decision to proceed with multivessel PCI and further TAVR evaluation as necessary. -- PCI -- Antithrombotic therapy: Heparin, clopidogrel Procedure: Left main cannulated with EBU 3.5 guide Pre-procedure flow AILEEN 2-3 Process Control Supervisor 50 wire passed across lesion into distal OM 2 Mid circumflex lesion predilated with 2.5 compliant balloon Dilated lesion stented with 3.5 x 15 mm [place] drug-eluting stent Stent post-dilated with 4.0 noncompliant balloon IC vasodilators administered for spasm Post procedure AILEEN 3 flow, stent well expanded with minimal residual stenosis and no apparent cardiac complications. BMW wire navigated across mid LAD stenosis into distal vessel Mid LAD stenosis dilated with 2.5 balloon Mid LAD stented with 3.0 x 15 mm [place] drug-eluting stent Stent postdilated with 3.5 NC balloon IC vasodilators administered for spasm Post procedure AILEEN 3 flow, stent well expanded with minimal residual stenosis and no apparent cardiac complications. Arterial Closure: TR band Summary: 1. Severe multi-vessel coronary artery disease -95% mid large circumflex 80% mid LAD 2. Normal intracardiac filling pressure 3. Moderate to severe aortic stenosis (pullback gradient 41 mmHg). 4. Successful PCI of mid circumflex with single drug-eluting stent (3.5 x 15 mm [place]; postdilated with 4.0 NC). 5. Successful PCI of mid LAD with single drug-eluting stent (3.0 x 15 mm [place]; postdilated with 3.5 NC). Recommendations: To PCU for continued monitoring Loaded with clopidogrel 600 mg in Crop Production Advisor Continue dual-antiplatelet therapy for at least 6 months Continue statin, and ASCVD risk factor modification Consult cardiac Rehab TAVR evaluation if remains symptomatic per Dr. Elizondo Hemodynamics Rest Ao:: 123/77/99 Final Ao: 140/72/69 LV: 193/15 Recommendations Recommendations: PCI without planned CABG and Valve Replacement Specimens Specimens: None Radiation Exposure (mGy) 3859 Contrast (mls) 135 Anesthesia moderate [id number] Procedural Complication(s) None Disposition PCU I attest to the content of the Intraoperative Record and any orders documented therein. Any exceptions are noted below. [facility] Card Cath Procedure Codes Cardiac Catheterization Procedure 1: Cardiovascular Cath Procedures: 83956 Coronaries and LHC (+/-LV) Moderate Sedation Procedure 1: Sedation/Anesthesia: 95005 Mod Sedation by the same physician;Init15 Min Child Age 5 & Up Procedure 2: Sedation/Anesthesia: 23712 Mod Sedation by the same physician; Ea Addit ional15 Minutes Stenting Procedure 1: Cardiovascular Stent Procedures: 52020 Perc transcatheter placement of intracoronary stent(s), with ang Procedure 2: Cardiovascular Stent Procedures: 33920 Ea addl branch of a major coronary artery PG Care Time/CCT Total # of Minutes Spent Total Time Spent with Patient: Total time spent is greater than 50% in coordination of care (as documented) at patient's floor/unit and/or counseling patient:
[2021-06-27 06:34] LABS: Basophils # (auto) 0.02 K/uL (0-0.2); Basophils % (auto) 0.3 %; Eosinophils # (auto) 0.13 K/uL (0-0.5); Eosinophils % (auto) 2.2 %; Hematocrit (blood only) 41.3 % (42-52); Hemoglobin 14.3 g/dL (14.0-18.0); Lymphocytes # (auto) 1.34 K/uL (1.2-3.4); Lymphocytes % (auto) 22.9 %; Mean Corpuscular Hemoglobin 33.7 pg (25-34); Mean Corpuscular Hgb Conc 34.6 g/dL (32-36); Mean Corpuscular Volume 97.4 fL (80-100); Mean Platelet Volume 9.3 fL (7.4-10.4); Monocytes # (auto) 0.53 K/uL (0.11-0.59); Monocytes % (auto) 9.1 %; Neutrophils # (auto) 3.83 K/uL (1.4-6.5); Neutrophils % (auto) 65.5 %; Platelet Count 234 K/uL (130-400); RDW Coefficient of Variation 13.3 % (11.5-14.5); RDW Standard Deviation 47.1 fL (36.4-46.3); Red Blood Count 4.24 M/uL (4.7-6.1); White Blood Count 5.85 K/uL (4.8-10.8)
[2021-06-27] MEDS ORDERED: CLOPIDOGREL BISULFATE 75 MG TAB PO SCH (09:00)
[2021-06-27] MEDS ORDERED: ASPIRIN 81 MG ECTAB PO SCH (09:00)
[2021-06-27] MEDS ORDERED: ATORVASTATIN 40 MG TAB PO SCH (09:00)
--- NOTE | 2021-06-27 09:59 | Electrocardiogram Report ---
Test Reason : Blood Pressure : / mmHG Vent. Rate : 070 BPM Atrial Rate : 070 BPM P-R Int : 178 ms QRS Dur : 092 ms QT Int : 394 ms P-R-T Axes : 042 046 100 degrees QTc Int : 425 ms Normal sinus rhythm Nonspecific ST and T wave abnormality Abnormal ECG When compared with ECG of 31-MAR-2019 10:39, Minimal criteria for Inferior infarct are no longer Present T wave inversion no longer evident in Inferior leads Nonspecific T wave abnormality now evident in Lateral leads Confirmed by Waqas Meyers ([id number]) on 06/27/2021 9:59:29 AM Referred By: Bladimir Elizondo Confirmed By:Osmar Meyers
--- NOTE | 2021-06-27 18:48 | Discharge Summary ---
Date of Service June 27, 2021 Admission HPI Per Admitting Provider Mr. Salgado is a very pleasant 65-year-old man with a history of aortic stenosis who was referred for repeat echocardiogram and cardiac catheterization in the setting of increasing dyspnea with exertion including one episode of chest pain while pushing a lawnmower. Repeat echocardiogram showed preserved LV function and severe aortic stenosis. Discharge Data Consultations 06/26/21 12:37 Consult Cardiac Rehabilitation Routine Procedures Performed Operation Date: 06/26/21 11:00 Actual Procedures s Cineradiography w/Routine Exam - Severo Villafana MD p Cath, Left with Cors and Vent - Severo Villafana MD s Drug Eluting Stent SGl Vessel - Severo Villafana MD s Drug Eluting Stent each ADDTL Vessel - Severo Villafana MD Hospital Course (1) CAD (coronary artery disease): Patient underwent cardiac catheterization via right radial artery. Was found to have severe two-vessel disease including a 95% mid circumflex, 80% mid LAD. Discussed options for management with the patient and his primary patternmaker plaster and plastic Dr. Elizondo. As patient had focal disease decision was made to proceed with PCI and evaluate for TAVR at a later time if still symptomatic. U nderwent uncomplicated PCI of mid circumflex, LAD with 2 drug-eluting stents. Post procedure admitted for observation. Was electrically stable on telemetry. No access site complications. Post procedure labs stable. No recurrent chest pain. Discharged home on dual antiplatelet therapy with aspirin, clopidogrel. Also started on high-intensity statin. Refer to cardiac rehab. Follow-up with Dr. Elizondo in 1 to 2 weeks. Coding Level of Care Code 77456 OBS Care - Discharge Diagnoses CAD (coronary artery disease) I25.10
== END 2021-06-27 11:50 | disposition home or self-care (01) ==
LOC: 2S 12:39 → CC 12:39
DX: I77.810 Thoracic aortic ectasia; I35.0 Nonrheumatic aortic (valve) stenosis; I25.110 Atherosclerotic heart disease of native coronary artery with unstable angina pectoris; R53.83 Other fatigue; Z79.899 Other long term (current) drug therapy; R06.00 Dyspnea, unspecified; I51.7 Cardiomegaly